=== PATIENT | male | born 1960 | race Caucasian/White ===

== ENCOUNTER → 2016-05-30 | Outpatient (CLI) | payer MEDICAID ==
[~2016-05-30] MED LIST: ASPI81CH43 PO; ATOR80TA PO; CARV6.2551 PO; CHOL400C15 PO; CLOP75TA28 PO; GABA300C8 PO; GLIP-115 PO; LOSA50TA6 PO; METF-314 PO; OMEG100062 PO
== END | disposition home or self-care (01) ==
LOC: Rad HDHVI 08:26
PROVIDERS: ATTEND Internal Medicine Cardiovascular Disease
DX: I10 Essential (primary) hypertension (principal); I73.89 Other specified peripheral vascular diseases; I97.89 Other postprocedural complications and disorders of the circulatory system, not elsewhere classified
CPT/HCPCS: 93926

== ENCOUNTER → 2016-07-03 | Outpatient (CLI) | payer MEDICAID ==
[~2016-07-03] MED LIST changes: +IOHEXOL 350 MG/ML 100ML IJ ONE
[2016-07-03 09:15] VITALS: BP 132/82
[2016-07-03 09:45] VITALS: BP 131/77
== END | disposition home or self-care (01) ==
LOC: Rad HDHVI 09:07
PROVIDERS: ATTEND Internal Medicine Cardiovascular Disease
DX: I77.1 Stricture of artery (principal); K40.90 Unilateral inguinal hernia, without obstruction or gangrene, not specified as recurrent; K57.30 Diverticulosis of large intestine without perforation or abscess without bleeding; E11.9 Type 2 diabetes mellitus without complications; Z89.612 Acquired absence of left leg above knee
CPT/HCPCS: 75635; G0463; Q9967

== ENCOUNTER → 2016-08-21 | Outpatient (CLI) | payer MEDICARE, MEDICAID ==
[~2016-08-21] MED LIST changes: -IOHEXOL 350 MG/ML 100ML IJ ONE
[2016-08-21 11:10] VITALS: BP 121/73
[2016-08-21 11:30] VITALS: BP 120/73
[2016-08-21 16:23] LABS: BUN/Creatinine Ratio 14.4; Calcium 9.7 mg/dL (8.5-10.1); INR 0.93 (0.9-1.15); Partial Thromboplastin Time 26.6 sec (22.64-33.71)
[2016-08-21 16:29] LABS: Basophils # (auto) 0 uL; Basophils % (auto) 0.4 % (0.0-2.0); Eosinophils # (auto) 0.4 uL; Eosinophils % (auto) 3.6 % (0.0-7.0); Hematocrit 43.9 % (41.0-53.0); Hemoglobin 14.8 g/dL (13.5-17.5); Lymphocytes # (auto) 2.3 uL; Lymphocytes % (auto) 23.4 % (10.0-50.0); Mean Corpuscular Hemoglobin 30.3 pg (28.0-32.0); Mean Corpuscular Hgb Conc. 33.8 g/dL (32.0-36.0); Mean Corpuscular Volume 89.8 fL (80.0-100.0); Mean Platelet Volume 9.1 fL (7.4-10.4); Monocytes # (auto) 0.9 uL; Monocytes % (auto) 9.5 % (0.0-12.0); Neutrophils # (auto) 6.3 uL; Neutrophils % (auto) 63.1 % (37.0-80.0); Platelet Count (auto) 449 10^3/uL (140-450); Red Cell Distribution Width 13.2 % (11.6-16.0)
== END | disposition home or self-care (01) ==
LOC: Rad HDHVI 10:54
PROVIDERS: ATTEND Internal Medicine Cardiovascular Disease
DX: Z01.810 Encounter for preprocedural cardiovascular examination (principal); I10 Essential (primary) hypertension; R79.1 Abnormal coagulation profile; D64.9 Anemia, unspecified
CPT/HCPCS: 36415; 71020; 80048; 85025; 85610; 85730; 93005; G0463

== ENCOUNTER 2016-08-23 08:53 | Day surgery (SDC) | payer MEDICARE, MEDICAID ==
[~2016-08-23] VITALS: Ht 172.7 cm; Wt 78.0 kg
[~2016-08-23 08:53] MED LIST changes: +GABA-497 PO; -GABA300C8 PO; -METF-314 PO; +METF-371 PO
[2016-08-23] MEDS ORDERED: ANGIOMAX 250 MG VIAL IV ONE ×2 (10:03→10:13)
[2016-08-23] MEDS ORDERED: LIDOCAINE 2%HCL (LOCAL ANESTH.) INJ 20ML MDV ONE (10:07)
[2016-08-23] MEDS ORDERED: IOHEXOL 350 MG/ML 100ML IJ ONE (10:07)
[2016-08-23] MEDS ORDERED: fentaNYL CITRATE 100 MCG/2 ML VL ONE (10:13)
[2016-08-23] MEDS ORDERED: MIDAZOLAM HCL 1MG/1ML-2 ML VIAL ONE (10:13)
[2016-08-23] MEDS ORDERED: EPTIFIBATIDE INJ (2MG/ML) 10ML VIAL IV ONE (10:14)
[2016-08-23] MEDS ORDERED: SODIUM CHL 0.9% 50 ML ONE (10:14)
[2016-08-23] MEDS ORDERED: SODIUM CHLORIDE 0.9% 1,000 ML IV SCH (12:11)
[2016-08-23] MEDS ORDERED: SODIUM CHLOR 0.9% PF (SALINE LOCK) 10ML VIAL IV SCH (14:00)
== END 2016-08-23 14:00 | disposition home or self-care (01) ==
LOC: CATH 08:53
PROVIDERS: ATTEND Internal Medicine Cardiovascular Disease
DX: I70.202 Unspecified atherosclerosis of native arteries of extremities, left leg (principal); I25.10 Atherosclerotic heart disease of native coronary artery without angina pectoris; I10 Essential (primary) hypertension; Z87.891 Personal history of nicotine dependence; E78.5 Hyperlipidemia, unspecified
CPT/HCPCS: 36140; 36245; 82962; C1760; C1769; C1887; C1894; J0583; J1644; J2250; J3010; J7030; Q9967; 99152